=== PATIENT | female | born 1945 | race Caucasian/White ===

== ENCOUNTER 2021-12-04 21:16 | Inpatient (IN) | payer MEDICARE, OTHER ==
[~2021-12-04] VITALS: Ht 165.1 cm; Wt 108.4 kg
[2021-12-04] MEDS ORDERED: ACETAMINOPHEN 325 MG TAB PO STA (21:23)
[2021-12-04] MEDS ORDERED: SODIUM CHLORIDE 0.9% 1000ML 1,000 ML IV STA (21:23)
[2021-12-04 21:38] LABS: BASOPHILS % 0.3 % (0.0-1.0); EOSINOPHILS # (AUTO) 0.1 (0.0-0.4); EOSINOPHILS % 0.4 % (0.0-6.0); HEMATOCRIT 42.2 % (34.2-44.1); HEMOGLOBIN 13.2 g/dL (12.0-16.0); LYMPHOCYTES # (AUTO) 0.6 (1.0-3.2); LYMPHOCYTES % 3.8 % (18.0-39.1); MEAN CORPUSCULAR HEMOGLOBIN 28.2 pg (28-32); MEAN CORPUSCULAR HGB CONC 31.3 g/dL (31-35); MEAN CORPUSCULAR VOLUME 90.2 fL (81-99); MONOCYTES # (AUTO) 0.8 (0.2-0.8); MONOCYTES % 4.8 % (4.4-11.3); NEUTROPHILS # (AUTO) 14.3 (2.1-6.9); PLATELET COUNT 196 x10e3/uL (140-360); RED BLOOD COUNT 4.68 x10e6/uL (3.6-5.1); RED CELL DISTRIBUTION WIDTH 14.6 % (11.7-14.4)
[2021-12-04] MEDS ORDERED: ACETAMINOPHEN 325 MG TAB ONE (21:48)
[2021-12-04] MEDS ORDERED: PIPERACILLIN/TAZOBACTAM 3.375 GM VIAL ONE (21:48)
[2021-12-04 22:02] LABS: CLARITY,URINE CLEAR (CLEAR); COLOR,URINE YELLOW (YELLOW); KETONES,URINE NEGATIVE (NEGATIVE); LEUKOCYTE ESTERASE ,URINE TRACE (NEGATIVE); NITRITE,URINE NEGATIVE (NEGATIVE); PROTEIN,URINE DIPSTICK NEGATIVE (NEGATIVE); URINE UROBILINOGEN 0.2 mg/dL (0.2 - 1)
[2021-12-04 22:09] LABS: ALBUMIN 3.6 g/dL (3.5-5.0); ALBUMIN/GLOBULIN RATIO 1.2 (0.8-2.0); ANION GAP 22.1 mmol/L (8-16); CALCIUM 8.6 mg/dL (8.4-10.2); CREATININE, SERUM 1.04 mg/dL (0.57-1.11); POTASSIUM 4.1 mmol/L (3.5-5.1)
[2021-12-04 22:27] LABS: BACTERIA,URINE FEW /HPF; EPITHELIAL CELLS,URINE FEW /LPF; RBC,URINE 0-5 /HPF (0-5); WBC,URINE (MAN) 0-5 /HPF (0-5)
[2021-12-04] MEDS ORDERED: IOPAMIDOL 370 MG/ML 100 ML INFUS..BTL INJ ONE (22:34)
[2021-12-04] MEDS ORDERED: Morphine 4mg INJECTION 4 MG/ML INJ IV PRN (23:15)
[2021-12-04] MEDS ORDERED: ONDANSETRON HCL INJ 2MG/ML 2ML 2 MG/ML VIAL IV PRN (23:15)
[2021-12-04] MEDS: SODIUM CHLORIDE 0.9% 1000ML 1,000 ML IV SCH (23:33)
[2021-12-04 23:59] LABS: CREATINE KINASE MB 1.2 ng/mL (0-5.0)
[2021-12-05] VITALS (10 sets, daily range): BP systolic 111–147; BP diastolic 62–96
[2021-12-05] MEDS ORDERED: ZYRTEC10 MG (03:34)
[2021-12-05] MEDS ORDERED: LASIX40 MG PO (03:34)
[2021-12-05] MEDS ORDERED: ZOLOFT100 MG PO (03:34)
[2021-12-05] MEDS ORDERED: ALLEGRA ALLERG180 MG (03:34)
[2021-12-05] MEDS ORDERED: LOSARTAN POTASS25 MG PO (03:34)
[2021-12-05] MEDS ORDERED: COREG6.25 MG PO (03:34)
[2021-12-05] MEDS ORDERED: POTASSIUM CHLO20 ME1 PO (03:34)
[2021-12-05] MEDS ORDERED: LEVOTHYROXINE112 MCG PO (03:34)
[2021-12-05] MEDS ORDERED: XARELTO20 MG PO (03:34)
[2021-12-05] MEDS: ACETAMINOPHEN 325 MG TAB PO PRN ×3 (04:44→22:12)
[2021-12-05] MEDS: SERTRALINE HCL 100 MG TAB PO SCH (07:28)
[2021-12-05] MEDS: CARVEDILOL 3.125 MG TAB PO SCH (07:28)
[2021-12-05] MEDS: LEVOTHYROXINE SODIUM 112 MCG TAB PO SCH (07:28)
[2021-12-05] MEDS: SODIUM CHLORIDE 0.9% 1000ML 1,000 ML IV SCH ×2 (07:29→15:23)
[2021-12-05 07:33] LABS: BASOPHILS % 0.1 % (0.0-1.0); EOSINOPHILS # (AUTO) 0.1 (0.0-0.4); EOSINOPHILS % 0.6 % (0.0-6.0); HEMATOCRIT 36.7 % (34.2-44.1); HEMOGLOBIN 11.4 g/dL (12.0-16.0); LYMPHOCYTES # (AUTO) 0.8 (1.0-3.2); LYMPHOCYTES % 6.1 % (18.0-39.1); MEAN CORPUSCULAR HGB CONC 31.1 g/dL (31-35); MEAN CORPUSCULAR VOLUME 90.2 fL (81-99); MONOCYTES # (AUTO) 0.8 (0.2-0.8); MONOCYTES % 5.9 % (4.4-11.3); NEUTROPHILS # (AUTO) 11.8 (2.1-6.9); NEUTROPHILS % 86.8 % (38.7-80.0); PLATELET COUNT 171 x10e3/uL (140-360); RED BLOOD COUNT 4.07 x10e6/uL (3.6-5.1); RED CELL DISTRIBUTION WIDTH 14.7 % (11.7-14.4)
[2021-12-05 07:56] LABS: ALBUMIN/GLOBULIN RATIO 1.1 (0.8-2.0); ANION GAP 17.1 mmol/L (8-16); CALCIUM 7.8 mg/dL (8.4-10.2); CREATININE, SERUM 0.81 mg/dL (0.57-1.11); POTASSIUM 4.1 mmol/L (3.5-5.1)
[2021-12-05 08:52] LABS: CREATINE KINASE MB 4.9 ng/mL (0-5.0)
[2021-12-05 12:11] LABS: ABG PCO2 35 mmHg (35-45); ABG PH 7.46 (7.35-7.45)
[2021-12-05 12:12] LABS: ABG HCO3 25 mmol/L (22-26); ABG PO2 65 mmHg (80-105); ABG TCO2 26
[2021-12-05] MEDS: ALBUTEROL/IPRATROPIUM 3 ML NEB NEB SCH ×2 (13:35→19:00)
[2021-12-05 16:19] LABS: CREATINE KINASE MB 1.5 ng/mL (0-5.0)
[2021-12-05] MEDS: BUDESONIDE/FORMOTEROL 160/4.5MCG INHALER INH SCH (19:00)
[2021-12-06] VITALS (7 sets, daily range): BP systolic 136–156; BP diastolic 71–94
[2021-12-06] MEDS: ALBUTEROL/IPRATROPIUM 3 ML NEB NEB SCH ×5 (00:42→20:25)
[2021-12-06] MEDS: SODIUM CHLORIDE 0.9% 1000ML 1,000 ML IV SCH ×3 (00:52→15:22)
[2021-12-06 06:15] LABS: BASOPHILS % 0.6 % (0.0-1.0); EOSINOPHILS # (AUTO) 0.2 (0.0-0.4); EOSINOPHILS % 2.6 % (0.0-6.0); HEMATOCRIT 35.1 % (34.2-44.1); HEMOGLOBIN 10.6 g/dL (12.0-16.0); LYMPHOCYTES # (AUTO) 0.8 (1.0-3.2); LYMPHOCYTES % 12.6 % (18.0-39.1); MEAN CORPUSCULAR HEMOGLOBIN 27.8 pg (28-32); MEAN CORPUSCULAR HGB CONC 30.2 g/dL (31-35); MEAN CORPUSCULAR VOLUME 92.1 fL (81-99); MONOCYTES # (AUTO) 0.5 (0.2-0.8); MONOCYTES % 7.1 % (4.4-11.3); NEUTROPHILS % 76.5 % (38.7-80.0); PLATELET COUNT 153 x10e3/uL (140-360); RED BLOOD COUNT 3.81 x10e6/uL (3.6-5.1); RED CELL DISTRIBUTION WIDTH 15.4 % (11.7-14.4)
[2021-12-06 06:38] LABS: ALBUMIN 2.6 g/dL (3.5-5.0); ALBUMIN/GLOBULIN RATIO 0.8 (0.8-2.0); ANION GAP 16.7 mmol/L (8-16); CALCIUM 7.2 mg/dL (8.4-10.2); CREATININE, SERUM 0.8 mg/dL (0.57-1.11); POTASSIUM 3.7 mmol/L (3.5-5.1)
[2021-12-06] MEDS: BUDESONIDE/FORMOTEROL 160/4.5MCG INHALER INH SCH ×2 (06:51→21:42)
[2021-12-06] MEDS: LEVOTHYROXINE SODIUM 112 MCG TAB PO SCH (07:30)
[2021-12-06] MEDS: CARVEDILOL 3.125 MG TAB PO SCH (08:00)
[2021-12-06] MEDS: SERTRALINE HCL 100 MG TAB PO SCH (08:14)
[2021-12-06] MEDS ORDERED: SUGAMMADEX SODIUM 200 MG/2 ML VIAL IV ONE (12:16)
[2021-12-06] MEDS ORDERED: SEVOFLURANE INHAL SOLN 250 ML PEN BTL ONE (12:16)
[2021-12-06] MEDS ORDERED: ROCURONIUM BROMIDE 10 MG/ML 5ML VIAL IV ONE (12:16)
[2021-12-06] MEDS ORDERED: KETOROLAC TROMETHAMINE 30 MG/ML VIAL ONE (12:16)
[2021-12-06] MEDS ORDERED: PROPOFOL IV EMULSION 10 MG/ML 20 ML VIAL ONE (12:16)
[2021-12-06] MEDS ORDERED: ACETAMINOPHEN 1000 MG/100 ML IV ONE (12:16)
[2021-12-06] MEDS ORDERED: ONDANSETRON HCL INJ 2MG/ML 2ML 2 MG/ML VIAL ONE (12:16)
[2021-12-06] MEDS ORDERED: POVIDONE IODINE 0.05% 0.05 % ML PO ONE (12:16)
[2021-12-06] MEDS ORDERED: DEXAMETHASONE SOD PHOS INJ 4 MG/ML SDV ONE (12:16)
[2021-12-06] MEDS ORDERED: LIDOCAINE HCL 2% LOCAL INJ 5 ML SDV VIAL INJ ONE (12:16)
[2021-12-06] MEDS ORDERED: BUPIVACAINE 0.25% 30ML SDV ONE (12:29)
[2021-12-06] MEDS ORDERED: ONDANSETRON HCL INJ 2MG/ML 2ML 2 MG/ML VIAL IV PRN (13:30)
[2021-12-06] MEDS ORDERED: HYDROCODONE/APAP 5MG-325MG TAB PO PRN (13:30)
[2021-12-06] MEDS ORDERED: Morphine 4mg INJECTION 4 MG/ML INJ IV PRN (13:30)
[2021-12-06] MEDS: ACETAMINOPHEN 325 MG TAB PO PRN (16:40)
[2021-12-06] MEDS ORDERED: FENTANYL CITRATE/PF 100MCG/2 ML INJ ONE (18:12)
[2021-12-07] MEDS: SODIUM CHLORIDE 0.9% 1000ML 1,000 ML IV SCH ×3 (00:22→15:15)
[2021-12-07] MEDS: ALBUTEROL/IPRATROPIUM 3 ML NEB NEB SCH ×4 (01:25→19:55)
[2021-12-07 05:53] LABS: BASOPHILS % 0.2 % (0.0-1.0); EOSINOPHILS % 0.2 % (0.0-6.0); HEMATOCRIT 33.6 % (34.2-44.1); HEMOGLOBIN 10.2 g/dL (12.0-16.0); LYMPHOCYTES # (AUTO) 0.5 (1.0-3.2); LYMPHOCYTES % 5.9 % (18.0-39.1); MEAN CORPUSCULAR HEMOGLOBIN 28.2 pg (28-32); MEAN CORPUSCULAR HGB CONC 30.4 g/dL (31-35); MEAN CORPUSCULAR VOLUME 92.8 fL (81-99); MONOCYTES # (AUTO) 0.6 (0.2-0.8); MONOCYTES % 6.8 % (4.4-11.3); NEUTROPHILS # (AUTO) 7.8 (2.1-6.9); NEUTROPHILS % 86.3 % (38.7-80.0); PLATELET COUNT 152 x10e3/uL (140-360); RED BLOOD COUNT 3.62 x10e6/uL (3.6-5.1); RED CELL DISTRIBUTION WIDTH 15.3 % (11.7-14.4)
[2021-12-07 06:20] LABS: ALBUMIN 2.6 g/dL (3.5-5.0); ALBUMIN/GLOBULIN RATIO 0.8 (0.8-2.0); ANION GAP 16.9 mmol/L (8-16); CALCIUM 7.4 mg/dL (8.4-10.2); CREATININE, SERUM 0.84 mg/dL (0.57-1.11); POTASSIUM 3.9 mmol/L (3.5-5.1)
[2021-12-07] MEDS: BUDESONIDE/FORMOTEROL 160/4.5MCG INHALER INH SCH ×2 (07:00→19:55)
[2021-12-07] MEDS: SERTRALINE HCL 100 MG TAB PO SCH (07:42)
[2021-12-07] MEDS: LEVOTHYROXINE SODIUM 112 MCG TAB PO SCH (07:42)
[2021-12-07] MEDS: CARVEDILOL 3.125 MG TAB PO SCH (07:47)
[2021-12-07 07:48] VITALS: BP 139/78
[2021-12-07 08:43] VITALS: BP 139/56
[2021-12-07 12:37] VITALS: BP 103/63
[2021-12-07 16:34] VITALS: BP_SYST 122; BP_SYST 128; BP_SYST 134; BP_DIAS 63; BP_DIAS 78
[2021-12-07] MEDS ORDERED: ONDANSETRON HCL 4 MG ORAL DISINTEGRATING TAB PO PRN (19:45)
[2021-12-07 20:00] VITALS: BP 130/76
[2021-12-07 21:00] VITALS: BP 128/78
[2021-12-07] MEDS: ACETAMINOPHEN 325 MG TAB PO PRN (22:06)
[2021-12-08] VITALS: BP 126/73
[2021-12-08] MEDS: SODIUM CHLORIDE 0.9% 1000ML 1,000 ML IV SCH ×2 (00:41→07:15)
[2021-12-08] MEDS: ALBUTEROL/IPRATROPIUM 3 ML NEB NEB SCH ×2 (02:20→07:12)
[2021-12-08 04:00] VITALS: BP 140/81
[2021-12-08 08:27] VITALS: BP 124/68
[2021-12-08] MEDS: CARVEDILOL 3.125 MG TAB PO SCH (08:36)
[2021-12-08] MEDS: LEVOTHYROXINE SODIUM 112 MCG TAB PO SCH (08:36)
[2021-12-08] MEDS: SERTRALINE HCL 100 MG TAB PO SCH (08:37)
[2021-12-08 08:48] VITALS: BP 124/78
== END 2021-12-08 09:19 | disposition home or self-care (01) | DRG 418 ==
LOC: ER 21:24 → ERHOLD 23:17 → MED/SURG3 12-05 00:49
PROVIDERS: ADMIT Internal Medicine; ATTEND Internal Medicine
PROC: 0FT44ZZ Resection of Gallbladder, Percutaneous Endoscopic Approach (ICD-10-PCS; principal; 2021-12-06 12:54)
DX: K80.00 Calculus of gallbladder with acute cholecystitis without obstruction (principal); I48.20 Chronic atrial fibrillation, unspecified; Z20.822 Contact with and (suspected) exposure to COVID-19; Z85.118 Personal history of other malignant neoplasm of bronchus and lung; G47.33 Obstructive sleep apnea (adult) (pediatric); Z79.01 Long term (current) use of anticoagulants; I49.5 Sick sinus syndrome; B02.9 Zoster without complications; Z85.850 Personal history of malignant neoplasm of thyroid; Z85.42 Personal history of malignant neoplasm of other parts of uterus; E89.0 Postprocedural hypothyroidism; R74.01 Elevation of levels of liver transaminase levels; I10 Essential (primary) hypertension; E66.09 Other obesity due to excess calories; Z68.39 Body mass index [BMI] 39.0-39.9, adult
CPT/HCPCS: 36415; 36600; 71045; 74177; 76705; 80053; 81001; 82550; 82553; 82805; 83605; 83690; 84484; 85025; 87040; 88304; 93005; 94640; 94799; 99284; J1100; J1885; J2001; J2405; J2543; J3010; J7030; Q9967

== ENCOUNTER 2022-02-23 05:54 | Inpatient (IN) | payer MEDICARE, OTHER ==
[~2022-02-23] VITALS: Ht 165.1 cm; Wt 106.6 kg
[~2022-02-23 05:54] MED LIST: ALLEGRA ALLERG180 MG PO; COREG6.25 MG PO; LASIX40 MG PO; LEVOTHYROXINE112 MCG PO; LOSARTAN POTASS25 MG PO; POTASSIUM CHLO20 ME1 PO; XARELTO20 MG PO; ZOLOFT100 MG PO; ZYRTEC10 MG
[2022-02-23] MEDS ORDERED: SODIUM CHLORIDE 0.9% 1000ML 1,000 ML IV STA (06:11)
[2022-02-23] MEDS ORDERED: ONDANSETRON HCL INJ 2MG/ML 2ML 2 MG/ML VIAL IV PRN ×2 (06:15→09:15)
[2022-02-23] MEDS ORDERED: DICYCLOMINE HCL 20 MG/2 ML VIAL IM ONE (06:15)
[2022-02-23 06:46] LABS: BASOPHILS % 0.3 % (0.0-1.0); EOSINOPHILS % 0.3 % (0.0-6.0); HEMATOCRIT 39.1 % (34.2-44.1); LYMPHOCYTES # (AUTO) 0.4 (1.0-3.2); LYMPHOCYTES % 3.3 % (18.0-39.1); MEAN CORPUSCULAR HEMOGLOBIN 28.2 pg (28-32); MEAN CORPUSCULAR HGB CONC 30.7 g/dL (31-35); MONOCYTES # (AUTO) 0.5 (0.2-0.8); MONOCYTES % 3.8 % (4.4-11.3); NEUTROPHILS # (AUTO) 11.6 (2.1-6.9); NEUTROPHILS % 91.7 % (38.7-80.0); PLATELET COUNT 221 x10e3/uL (140-360); RED BLOOD COUNT 4.25 x10e6/uL (3.6-5.1); RED CELL DISTRIBUTION WIDTH 15.2 % (11.7-14.4)
[2022-02-23 07:09] LABS: ALBUMIN 2.8 g/dL (3.5-5.0); ALBUMIN/GLOBULIN RATIO 0.7 (0.8-2.0); ANION GAP 16.8 mmol/L (8-16); CALCIUM 8.9 mg/dL (8.4-10.2); CREATININE, SERUM 0.75 mg/dL (0.57-1.11); POTASSIUM 3.8 mmol/L (3.5-5.1)
[2022-02-23 07:12] LABS: COLOR,URINE YELLOW (YELLOW)
[2022-02-23 07:13] LABS: CLARITY,URINE CLOUDY (CLEAR); KETONES,URINE 1+ (NEGATIVE); LEUKOCYTE ESTERASE ,URINE TRACE (NEGATIVE); NITRITE,URINE POSITIVE (NEGATIVE); PROTEIN,URINE DIPSTICK 2+ (NEGATIVE); URINE UROBILINOGEN 1 mg/dL (0.2 - 1)
[2022-02-23 07:17] LABS: BACTERIA,URINE MANY /HPF; WBC,URINE (MAN) 21-50 /HPF (0-5)
[2022-02-23 07:18] LABS: EPITHELIAL CELLS,URINE FEW /LPF
[2022-02-23] MEDS ORDERED: IOPAMIDOL 370 MG/ML 100 ML INFUS..BTL INJ ONE (07:29)
[2022-02-23] MEDS ORDERED: Morphine 4mg INJECTION 4 MG/ML INJ IV PRN (09:15)
[2022-02-23] MEDS: SODIUM CHLORIDE 0.9% 1000ML 1,000 ML IV SCH ×2 (10:15→17:30)
[2022-02-23 12:00] VITALS: BP 143/81
[2022-02-23 12:16] VITALS: BP 143/81
[2022-02-23] MEDS ORDERED: LOSARTAN POTASS25 MG PO (14:08)
[2022-02-23] MEDS ORDERED: SYNTHROID125 MCG PO (14:08)
[2022-02-23] MEDS ORDERED: PRAVASTATIN SOD40 MG PO (14:08)
[2022-02-23] MEDS ORDERED: COREG6.25 MG PO (14:08)
[2022-02-23] MEDS ORDERED: MULTI-VITAMIN1 EACH PO (14:08)
[2022-02-23] MEDS ORDERED: VITAMIN D350 MCG PO (14:08)
[2022-02-23] MEDS ORDERED: TACROLIMUS30 G1 (14:08)
[2022-02-23] MEDS ORDERED: SLOW-MAG64 MG PO (14:08)
[2022-02-23] MEDS ORDERED: TRELEGY ELLIPT1 EACH INH (14:08)
[2022-02-23] MEDS ORDERED: calcium PO (14:08)
[2022-02-23] MEDS ORDERED: XARELTO20 MG PO (14:08)
[2022-02-23] MEDS ORDERED: ZYRTEC10 MG PO (14:08)
[2022-02-23] MEDS ORDERED: POTASSIUM CHLO20 ME1 PO (14:08)
[2022-02-23] MEDS ORDERED: ZOLOFT100 MG PO (14:08)
[2022-02-23] MEDS ORDERED: LASIX40 MG PO (14:08)
[2022-02-23 16:03] VITALS: BP 119/75
[2022-02-23 20:00] VITALS: BP 153/89
[2022-02-23] MEDS: LACTATED RINGER'S 1,000 ML INJ SCH (23:34)
[2022-02-24] VITALS (9 sets, daily range): BP systolic 133–153; BP diastolic 77–92
[2022-02-24] MEDS: LACTATED RINGER'S 1,000 ML INJ SCH ×4 (05:42→21:24)
[2022-02-24] MEDS: LEVOTHYROXINE SODIUM 125 MCG TAB PO SCH (06:14)
[2022-02-24 06:20] LABS: BASOPHILS % 0.3 % (0.0-1.0); EOSINOPHILS # (AUTO) 0.2 (0.0-0.4); EOSINOPHILS % 1.8 % (0.0-6.0); HEMATOCRIT 34.8 % (34.2-44.1); HEMOGLOBIN 11.1 g/dL (12.0-16.0); LYMPHOCYTES # (AUTO) 0.6 (1.0-3.2); LYMPHOCYTES % 5.7 % (18.0-39.1); MEAN CORPUSCULAR HEMOGLOBIN 28.7 pg (28-32); MEAN CORPUSCULAR HGB CONC 31.9 g/dL (31-35); MEAN CORPUSCULAR VOLUME 89.9 fL (81-99); MONOCYTES # (AUTO) 0.6 (0.2-0.8); MONOCYTES % 5.7 % (4.4-11.3); NEUTROPHILS # (AUTO) 8.6 (2.1-6.9); NEUTROPHILS % 85.9 % (38.7-80.0); PLATELET COUNT 208 x10e3/uL (140-360); RED BLOOD COUNT 3.87 x10e6/uL (3.6-5.1); RED CELL DISTRIBUTION WIDTH 15.5 % (11.7-14.4)
[2022-02-24] MEDS ORDERED: LEVOTHYROXINE SODIUM 125 MCG TAB PO SCH (06:30)
[2022-02-24 07:06] LABS: ALBUMIN 2.4 g/dL (3.5-5.0); ALBUMIN/GLOBULIN RATIO 0.8 (0.8-2.0); ANION GAP 14.3 mmol/L (8-16); CALCIUM 7.8 mg/dL (8.4-10.2); CREATININE, SERUM 0.69 mg/dL (0.57-1.11); POTASSIUM 4.3 mmol/L (3.5-5.1)
[2022-02-24] MEDS: CARVEDILOL 3.125 MG TAB PO SCH ×2 (08:00→17:00)
[2022-02-24] MEDS: SERTRALINE HCL 100 MG TAB PO SCH (09:00)
[2022-02-25] VITALS (9 sets, daily range): BP systolic 131–159; BP diastolic 74–92
[2022-02-25] MEDS: LACTATED RINGER'S 1,000 ML INJ SCH ×2 (05:28→08:42)
[2022-02-25] MEDS: LEVOTHYROXINE SODIUM 125 MCG TAB PO SCH (05:28)
[2022-02-25 07:10] LABS: BASOPHILS # (AUTO) 0.1 (0.0-0.1); BASOPHILS % 0.6 % (0.0-1.0); EOSINOPHILS # (AUTO) 0.2 (0.0-0.4); EOSINOPHILS % 2.4 % (0.0-6.0); HEMATOCRIT 33.9 % (34.2-44.1); HEMOGLOBIN 10.8 g/dL (12.0-16.0); LYMPHOCYTES # (AUTO) 0.7 (1.0-3.2); LYMPHOCYTES % 7.8 % (18.0-39.1); MEAN CORPUSCULAR HEMOGLOBIN 28.6 pg (28-32); MEAN CORPUSCULAR HGB CONC 31.9 g/dL (31-35); MEAN CORPUSCULAR VOLUME 89.9 fL (81-99); MONOCYTES # (AUTO) 0.5 (0.2-0.8); MONOCYTES % 5.9 % (4.4-11.3); NEUTROPHILS # (AUTO) 6.9 (2.1-6.9); NEUTROPHILS % 82.6 % (38.7-80.0); PLATELET COUNT 221 x10e3/uL (140-360); RED BLOOD COUNT 3.77 x10e6/uL (3.6-5.1); RED CELL DISTRIBUTION WIDTH 15.3 % (11.7-14.4)
[2022-02-25 07:41] LABS: ALBUMIN 2.2 g/dL (3.5-5.0); ALBUMIN/GLOBULIN RATIO 0.6 (0.8-2.0); ANION GAP 14.4 mmol/L (8-16); CALCIUM 8.3 mg/dL (8.4-10.2); CREATININE, SERUM 0.64 mg/dL (0.57-1.11); POTASSIUM 4.4 mmol/L (3.5-5.1)
[2022-02-25] MEDS: SERTRALINE HCL 100 MG TAB PO SCH (09:00)
[2022-02-25] MEDS ORDERED: FUROSEMIDE INJ 10 MG/ML 4 ML VIAL IV NR (10:15)
[2022-02-25] MEDS ORDERED: ONDANSETRON HCL INJ 2MG/ML 2ML 2 MG/ML VIAL ONE (12:41)
[2022-02-25] MEDS ORDERED: POVIDONE IODINE 0.05% 0.05 % ML PO ONE (12:41)
[2022-02-25] MEDS ORDERED: PROPOFOL IV EMULSION 10 MG/ML 20 ML VIAL ONE (12:41)
[2022-02-25] MEDS ORDERED: SEVOFLURANE INHAL SOLN 250 ML PEN BTL ONE (12:41)
[2022-02-25] MEDS ORDERED: SUCCINYLCHOLINE CHLORIDE 20 MG/ML 10ML VIAL ONE (12:41)
[2022-02-25] MEDS ORDERED: MIDAZOLAM HCL 2 MG/2 ML VIAL ONE (12:49)
[2022-02-25] MEDS ORDERED: FENTANYL CITRATE/PF 100MCG/2 ML INJ ONE (12:49)
[2022-02-25] MEDS: CARVEDILOL 3.125 MG TAB PO SCH ×2 (13:03→17:00)
[2022-02-25] MEDS: ALBUTEROL/IPRATROPIUM 3 ML NEB NEB SCH ×2 (13:10→20:10)
[2022-02-25] MEDS ORDERED: IOPAMIDOL 300MG/ML 50ML INFUS..BTL IV ONE (16:15)
[2022-02-25] MEDS ORDERED: INDOMETHACIN 50 MG SUPP.RECT RC ONE (16:16)
[2022-02-26] VITALS: BP 123/82
[2022-02-26] MEDS: ALBUTEROL/IPRATROPIUM 3 ML NEB NEB SCH ×4 (02:20→15:35)
[2022-02-26 05:35] LABS: BASOPHILS % 0.6 % (0.0-1.0); EOSINOPHILS # (AUTO) 0.1 (0.0-0.4); EOSINOPHILS % 2.6 % (0.0-6.0); HEMATOCRIT 33.9 % (34.2-44.1); HEMOGLOBIN 10.3 g/dL (12.0-16.0); LYMPHOCYTES # (AUTO) 0.6 (1.0-3.2); LYMPHOCYTES % 10.4 % (18.0-39.1); MEAN CORPUSCULAR HEMOGLOBIN 28.4 pg (28-32); MEAN CORPUSCULAR HGB CONC 30.4 g/dL (31-35); MEAN CORPUSCULAR VOLUME 93.4 fL (81-99); MONOCYTES # (AUTO) 0.4 (0.2-0.8); MONOCYTES % 7.1 % (4.4-11.3); NEUTROPHILS # (AUTO) 4.2 (2.1-6.9); NEUTROPHILS % 78.7 % (38.7-80.0); PLATELET COUNT 231 x10e3/uL (140-360); RED BLOOD COUNT 3.63 x10e6/uL (3.6-5.1); RED CELL DISTRIBUTION WIDTH 14.9 % (11.7-14.4)
[2022-02-26] MEDS: LACTATED RINGER'S 1,000 ML INJ SCH (05:35)
[2022-02-26] MEDS: LEVOTHYROXINE SODIUM 125 MCG TAB PO SCH (05:56)
[2022-02-26 06:05] LABS: ALBUMIN 2.1 g/dL (3.5-5.0); ALBUMIN/GLOBULIN RATIO 0.6 (0.8-2.0); ANION GAP 16.6 mmol/L (8-16); CALCIUM 8.1 mg/dL (8.4-10.2); CREATININE, SERUM 0.63 mg/dL (0.57-1.11); MAGNESIUM 1.9 MG/DL (1.3-2.1); POTASSIUM 3.6 mmol/L (3.5-5.1)
[2022-02-26 07:59] VITALS: BP 131/72
[2022-02-26 08:08] VITALS: BP 131/72
[2022-02-26] MEDS: CARVEDILOL 3.125 MG TAB PO SCH ×2 (09:05→17:04)
[2022-02-26] MEDS: SERTRALINE HCL 100 MG TAB PO SCH (09:06)
[2022-02-26] MEDS ORDERED: ALLEGRA-D 24 H1 EACH PO (10:43)
[2022-02-26] MEDS ORDERED: ZYRTEC10 MG PO (10:43)
[2022-02-26] MEDS ORDERED: ALLEGRA ALLERGY60 MG PO (10:57)
[2022-02-26 12:18] VITALS: BP 128/66
[2022-02-26 16:39] VITALS: BP 131/79
[2022-02-26 20:00] VITALS: BP 132/67
[2022-02-26] MEDS ORDERED: ZYRTEC 10 MG PO SCH (21:00)
[2022-02-27] MEDS: ALBUTEROL/IPRATROPIUM 3 ML NEB NEB SCH ×2 (01:20→06:32)
[2022-02-27 04:00] VITALS: BP 155/74
[2022-02-27 05:13] VITALS: BP 138/57
[2022-02-27] MEDS: LEVOTHYROXINE SODIUM 125 MCG TAB PO SCH (05:38)
[2022-02-27 05:56] LABS: BASOPHILS % 0.7 % (0.0-1.0); EOSINOPHILS # (AUTO) 0.2 (0.0-0.4); EOSINOPHILS % 3.1 % (0.0-6.0); HEMATOCRIT 35.4 % (34.2-44.1); HEMOGLOBIN 10.5 g/dL (12.0-16.0); LYMPHOCYTES # (AUTO) 0.9 (1.0-3.2); LYMPHOCYTES % 16.5 % (18.0-39.1); MEAN CORPUSCULAR HGB CONC 29.7 g/dL (31-35); MEAN CORPUSCULAR VOLUME 94.4 fL (81-99); MONOCYTES # (AUTO) 0.4 (0.2-0.8); MONOCYTES % 6.3 % (4.4-11.3); NEUTROPHILS % 72.5 % (38.7-80.0); PLATELET COUNT 255 x10e3/uL (140-360); RED BLOOD COUNT 3.75 x10e6/uL (3.6-5.1); RED CELL DISTRIBUTION WIDTH 15.2 % (11.7-14.4)
[2022-02-27 06:16] LABS: ALBUMIN 2.2 g/dL (3.5-5.0); ALBUMIN/GLOBULIN RATIO 0.6 (0.8-2.0); ANION GAP 13.7 mmol/L (8-16); CALCIUM 8.1 mg/dL (8.4-10.2); CREATININE, SERUM 0.67 mg/dL (0.57-1.11); POTASSIUM 3.7 mmol/L (3.5-5.1)
[2022-02-27 08:41] VITALS: BP 142/81
[2022-02-27 08:45] VITALS: BP 142/81
[2022-02-27] MEDS ORDERED: LORATADINE/PSEUDOEPHEDRINE 24 HR SR TAB PO SCH (09:00)
[2022-02-27] MEDS ORDERED: ALLEGRA 180 MG PO SCH (09:00)
[2022-02-27] MEDS: SERTRALINE HCL 100 MG TAB PO SCH (09:32)
[2022-02-27] MEDS: CARVEDILOL 3.125 MG TAB PO SCH (09:33)
[2022-02-27] MEDS ORDERED: ONDANSETRON HCL 4 MG ORAL DISINTEGRATING TAB PO PRN (11:00)
== END 2022-02-27 11:17 | disposition home or self-care (01) | DRG 444 ==
LOC: ER 06:04 → ERHOLD 09:14 → ER 11:30 → MED/SURG3 11:36
PROVIDERS: ADMIT Internal Medicine; ATTEND Internal Medicine
PROC: BF141ZZ Fluoroscopy of Gallbladder, Bile Ducts and Pancreatic Ducts using Low Osmolar Contrast (ICD-10-PCS; 2022-02-25)
PROC: 0FC98ZZ Extirpation of Matter from Common Bile Duct, Via Natural or Artificial Opening Endoscopic (ICD-10-PCS; principal; 2022-02-25 17:13)
DX: K82.8 Other specified diseases of gallbladder (principal); K85.90 Acute pancreatitis without necrosis or infection, unspecified; N39.0 Urinary tract infection, site not specified; E03.9 Hypothyroidism, unspecified; F32.A Depression, unspecified; I48.91 Unspecified atrial fibrillation; Z79.01 Long term (current) use of anticoagulants; E66.09 Other obesity due to excess calories; Z68.39 Body mass index [BMI] 39.0-39.9, adult; G47.33 Obstructive sleep apnea (adult) (pediatric); F41.9 Anxiety disorder, unspecified; Z95.0 Presence of cardiac pacemaker; Z79.899 Other long term (current) drug therapy; I11.0 Hypertensive heart disease with heart failure; I50.9 Heart failure, unspecified
CPT/HCPCS: 36415; 43260; 74177; 74328; 80053; 81001; 82150; 83690; 83735; 84484; 85025; 87086; 87186; 93005; 94640; 94799; 96372; 99251; 99284; J0330; J0500; J0696; J1940; J2250; J2270; J2405; J3010; J7030; J7121; Q9967

== ENCOUNTER 2024-11-21 00:22 | Emergency (ER) | payer MEDICARE, OTHER ==
[~2024-11-21] VITALS: Ht 165.1 cm; Wt 106.6 kg
[~2024-11-21 00:22] MED LIST changes: +ALLEGRA ALLERGY60 MG PO; +ALLEGRA-D 24 H1 EACH PO; +MULTI-VITAMIN1 EACH PO; +PRAVASTATIN SOD40 MG PO; +SLOW-MAG64 MG PO; +SYNTHROID125 MCG PO; +TACROLIMUS30 G1; +TRELEGY ELLIPT1 EACH INH; +VITAMIN D350 MCG PO; +ZYRTEC10 MG PO; +calcium PO
[2024-11-21 00:30] VITALS: TEMP 97.8
[2024-11-21 02:00] VITALS: PULSE 76; RESP 19
[2024-11-21] MEDS: TETANUS/DIPHTHERIA TOX ADULT 0.5 ML SYR IM ONE (02:37)
[2024-11-21] MEDS: LIDOCAINE HCL 1% LOCAL INJ 20 ML VIAL INJ STA (02:39)
[2024-11-21] MEDS ORDERED: CEPHALEXIN500 MG PO (02:43)
[2024-11-21] MEDS ORDERED: AMOX TR-K CLV1 EAC2 PO (03:18)
[2024-11-21] MEDS ORDERED: ULTRAM 50MG50 MG PO (03:18)
[2024-11-21 03:28] VITALS: BP 127/73; PULSE 75; RESP 18; TEMP 98.2; O2SAT 96
== END 2024-11-21 03:05 | disposition home or self-care (01) ==
LOC: ER 00:28
DX: S02.40DA Maxillary fracture, left side, initial encounter for closed fracture (principal); S01.112A Laceration without foreign body of left eyelid and periocular area, initial encounter; S81.012A Laceration without foreign body, left knee, initial encounter; W01.198A Fall on same level from slipping, tripping and stumbling with subsequent striking against other object, initial encounter; Y93.01 Activity, walking, marching and hiking; Y92.89 Other specified places as the place of occurrence of the external cause; I10 Essential (primary) hypertension; I48.91 Unspecified atrial fibrillation; E03.9 Hypothyroidism, unspecified; Z85.118 Personal history of other malignant neoplasm of bronchus and lung; Z95.810 Presence of automatic (implantable) cardiac defibrillator
CPT/HCPCS: 70450; 70486; 90471; 90714; 99284